=== PATIENT | female | born 1935 | race Caucasian/White ===

== ENCOUNTER 2019-08-29 17:11 | Observation (INO) | payer MEDICARE, SELFPAY ==
[2019-08-29] VITALS (18 sets, daily range): BP systolic 112–153; BP diastolic 60–78; PULSE 60–86; RESP 12–18; TEMP -13.3–36.7; O2SAT 85–97; BMI 22.4
--- NOTE | 2019-08-29 08:00 | PCM.HP.BLA ---
History and Physical Date of Admission: 08/29/19 Katiana Blum 1935 ? ? REFERRING PHYSICIAN: Darryl Salazar, DO ? CHIEF COMPLAINT: Consult ? HPI: The patient is a 84 year old female presents with episodes of right upper quadrant abdominal pain. She has also noted occasional nausea and decreased appetite. Also few episodes of emesis. Denies fevers. States that the pain is occasional sharp, does not radiate. She is presently on a PPI, but denies heartburn. Denies constipation or diarrhea ? US 08/10/2019 IMPRESSION: Undistended gallbladder containing sludge and a large nonmobile stone near the neck. ?There is no wall thickening, wall edema or pericholecystic fluid. ?There is no sonographic Luther sign per technologist note. Bosniak 2F Indeterminant complex cystic lesion upper pole right kidney. ? Suggest either dedicated [address] with and without contrast or close 6 month sonographic follow-up. Coarsened hepatic echotexture and inhomogeneous echogenicity with some subtle lobulated contour which could indicate mild cirrhotic morphology and fatty infiltration. ? ? PAST MEDICAL HISTORY ? COPD (chronic obstructive pulmonary disease) with chronic bronchitis (HCC) ? ? Hypertension ? ? Lower extremity edema ? ? on diuretic ? Osteoporosis ? ? on Fosamax in past ? Vertigo ? ? PAST SURGICAL HISTORY ? HEART CATHETERIZATION ? 1998 ? PAST SURGICAL HISTORY OF ? ? ? left eye surgery ? PAST SURGICAL HISTORY OF ? ? ? left ankle surgery after fx ? PAST SURGICAL HISTORY OF ? ? ? arthroscopic left thumb ? ? Current Outpatient Medications ? diclofenac sodium (VOLTAREN) 1 % topical gel Apply 2 g to affected area four times daily as needed (ankle joint pain). Fill as generic, do not fill under brand name Voltaren ? lansoprazole (PREVACID) 30 mg capsule Take 1 capsule by mouth daily before breakfast. ? albuterol HFA (PROAIR HFA) 90 mcg/actuation inhaler Inhale 2 Puffs as instructed every 4 hours as needed. GENERIC okay ? sertraline (ZOLOFT) 25 mg tablet TAKE 1 TABLET EVERY DAY AT BEDTIME ? tiotropium (SPIRIVA WITH HANDIHALER) 18 mcg inhalation capsule INHALE THE CONTENTS OF 1 CAPSULE INSTRUCTED ONCE DAILY. ? triamterene-hydrochlorothiazide (MAXZIDE-25) 37.5-25 mg per tablet TAKE 1 TABLET ONE TIME DAILY ? meloxicam (MOBIC) 7.5 mg tablet Take 1 tablet by mouth once daily. ? metoprolol succinate ER (TOPROL XL) 25 mg 24 hr tablet Take 1 tablet by mouth once daily. ? albuterol HFA (PROVENTIL HFA, VENTOLIN HFA) 90 mcg/actuation inhaler Inhale 2 Puffs as instructed every 6 hours as needed for Wheezing/Shortness of Breath. ? Cane shayy 1 Device once daily. Quad cane to be used daily for Dx: Right ankle sprain ? Aspirin, Buffered 81 mg tab Take by mouth. ? calcium carbonate 600 mg-cholecalciferol 400 units (CALCIUM WITH VITAMIN D) 600 mg(1,500mg) -400 unit tab Take 1 tablet by mouth once daily. ? acetaminophen 650 mg CR tablet Take 650 mg by mouth every 8 hours as needed. ? ? ALLERGIES: Flovent [Fluticasone Propionate] ? PERSONAL HISTORY: Social History ? Tobacco Use ? Smoking status: Former Smoker ? ? Packs/day: 1.00 ? ? Years: 50.00 ? ? Pack years: 50.00 ? ? Types: Cigarettes ? ? Last attempt to quit: 02/18/1996 ? ? Years since quittin.5 ? Smokeless tobacco: Never Used Substance Use Topics ? Alcohol use: No ? Drug use: No ? FAMILY HISTORY ? Heart Mother ? ? Heart Father ? ? Breast Cancer Daughter ? ? Cancer Sister ? ? Lung ? Heart Maternal Grandmother ? ? Hypertension Brother ? ? Hypertension Brother ? ? Hypertension Sister ? ? ? Nursing Notes: Lee Ann Wilkinson LPN 08/18/2019 2:21 PM Signed REVIEW OF SYSTEMS: General: The patient NOTES fatigue, denies weight loss, denies weight gain, denies feeling hot, and denies feelings of cold. Eyes: The patient denies glaucoma, denies eye injury/surgery, wears glasses or contacts. Ear/Nose/Throat: The patient denies allergies, denies hayfever, denies ear infections, and denies bloody noses. Cardiovascular: EKG in office was OK, denies chest pain, denies heart disease, denies high blood pressure,denies cardiac stent, denies prior heart attack, denies irregular heart beat, denies high cholesterol, denies poor circulation, denies heart failure, other cardiac issues, denies claudication, denies cold feet, denies peripheral arterial stent. Respiratory: has SOB with exertion, had recent PFTs, denies tuberculosis, denies pneumonia, denies frequent cough, denies pulmonary embolism, denies coughing up blood. Gastrointestinal: denies previous colonoscopy but recent IFOBT was negative, denies constipation of diarrhea, denies difficulty swallowing, NOTES acid reflux, denies ulcers, NOTES vomiting, denies jaundice/hepatitis, notes gallbladder problems, denies black or tarry stools, denies hemorrhoids, denies bleeding from rectum, denies diverticulitis, denies loss of stool control, and denies hernias. Kidney/Bladder: The patient denies kidney stones, denies urine infections, and denies bloody urine. Skin: The patient denies a history of skin cancer, denies bleeding/changing moles, and denies a history of skin rash. Neurologic: The patient denies a history of epilepsy/convulsions, denies headaches, denies head/spinal injuries, and denies stroke/TIA. Psychiatric: The patient denies psychiatric medications, NOTES depression, and denies voices, denies substance abuse. Endocrine: The patient denies thyroid disorders, denies diabetes, and denies hormonal problems. Hematologic: The patient notesa history of bruising, denies bleeding, and denies anemia, DENIES blood clots. Infections: The patient NOTES a history of measles and mumps, NOTES rheumatic fever, and denies sexually transmitted diseases. Musculoskeletal: The patient denies back pain/injury, denies back problems, denies sciatica, NOTES knee/foot trouble, NOTES arthritis, or denies gout. ? ? PHYSICAL EXAMINATION: General: The patient is 84 year old female, well nourished, well hydrated in no acute distress. The patient is oriented to time, place, and person. VITALS: Blood pressure 140/78, pulse 68, temperature 36.4 ?C (97.5 ?F), temperature source Temporal Artery, height 157.5 cm (5' 2), weight 59.9 kg (132 lb), SpO2 97 %. Body mass index is 24.14 kg/m?. Head ? Normocephalic. EOM intact with sclera clear and no icterus noted. Mouth with mucus membranes moist. Neck - supple with no jugular venous distention noted. Trachea is midline. Lungs ? clear to auscultation. Normal breath sounds. No rales/rhonchi/wheezing noted. No labored breathing noted, such as retractions. No cough heard. Heart ? normal S1 and S2 auscultated. No rubs/clicks/murmurs noted. Regular rate. Abdomen ? soft and benign. Normal bowel sounds. No abdominal bruits noted. Extremities ? no calf tenderness noted. No pitting edema noted. Skin ? normal skin integrity. Neurological ? gait normal, no focal deficits noted. Psych ? calm and appropriate RADIOLOGIC STUDIES: As Noted ? ? IMPRESSION: cholelithiasis by US, right upper quadrant abdominal pain ? PLAN: I have discussed the above with the patient and her son who is present with her. I have offered laparoscopic cholecystectomy, possible cholangiograms. I have explained the procedure to the patient. I have counseled the patient as to the risks of the procedure, including but not limited to: infection, bleeding, injury to any blood vessels/nerves, scar tissue, injury to any intrabdominal organs, injury to bowel/bladder, injury to the common bile duct/biliary tree, bile leakage, intraabdominal abscess/bleeding, hernias at incisional sites, wound infections, complications of anesthesia, etc. ? the patient understands. The patient wishes to proceed. I have answered all questions to the patient?s satisfaction and the patient has no further questions. . Diagnoses: (R11.0) Nausea (K80.70) Calculus of gallbladder and bile duct without cholecystitis or obstruction (K76.9) Liver disorder Return to Clinic: The patient is instructed to follow-up with me after the procedure. ? Melanie Rice MD
[2019-08-29 12:08] LABS: Prothrombin Time (Protime)PT. 12.8 SECONDS (11.7-14.9)
[2019-08-29] MEDS: Lactated Ringers 1,000 ML 75 ML IV (12:08)
[2019-08-29 12:09] LABS: Partial Thromboplast Time 23.6 Seconds (24.1-36.2)
[2019-08-29 12:15] LABS: AST(SGOT) 22 U/L (15-37); Alanine Aminotransfer ALT/SGPT 19 U/L (13-56); Albumin, Serum 3.9 g/dL (3.2-5.0); Alkaline Phosphatase 79 U/L (45-117); Anion Gap 7 (5-15); BUN 34 mg/dL (7-18); Bilirubin, Direct 0.09 mg/dL (0.00-0.30); Calcium,Total 9.6 mg/dL (8.5-10.1); Chloride 107 mmol/L (98-107); Creatinine, Serum 1.48 mg/dL (0.55-1.02); EST Glomerular Filtration Rate 36 mL/min (>60); Est Glom Filt Rate - Afr Amer 43 mL/min (>60); Glucose 98 mg/dL (74-106); Potassium 4.1 mmol/L (3.5-5.1); Protein, Total 7.9 g/dL (6.4-8.2); Sodium Level 143 mmol/L (136-145)
[2019-08-29 12:20] LABS: Hematocrit 36.2 % (37-47); Hemoglobin 11.4 g/dL (12.0-15.0); Mean Corp Hgb Conc 31.5 g/dL (32-36); Mean Corpuscular Hgb 30.2 pg (27.0-32.0); Mean Corpuscular Volume 95.8 fL (81-99); Mean Platelet Vol. 11.6 fl (6.2-12.0); Platelet Count 180 K/mm3 (150-450); RBC Distribution Width CV 13.2 % (11.6-14.6); RBC Distribution Width SD 46.5 fl (35.1-43.9); Red Blood Count 3.78 M/mm3 (4.2-5.4)
--- NOTE | 2019-08-29 13:05 | GALL_PTH ---
PATIENT: MELCHOR HENDRICKS LOC: [facility]3 U#:[id number] AGE/SX: 84/F ROOM: MS311 RE08/29/[address]: Dr. Trent Winston MD : 1935 BED: 1 DIS: 08/31/2019 SPEC #: [id number] RECD: 08/29/19 15:33 STATUS: TRUDY MIKI #: [id number] KAYKAY: 08/29/19 13:[address]: Melanie Rice DEPT: SURGICAL PATHOLOGY RECD BY: Petar Winters ENTERED: 08/30/19 09:26 SP TYPE: SERG RODRIGUEZ DR: Dr. Darryl Salazar DO Tissues: A - Gallbladder, NOS B - Lymph node, NOS Procedures: Surgery Specimen Level III Surgery Specimen Level IV HEADER OPERATION: Laparoscopic cholecystectomy with IOC PRE-OP DIAGNOSIS: Calculus of gallbladder and bile duct TISSUE SUBMITTED: A - Gallbladder, B - Lymph node MICROSCOPIC DIAGNOSIS A. Gallbladder, cholecystectomy: Chronic cholecystitis and cholelithiasis. Gallbladder wall with hyalinization, calcific change and embedded fragments of calculi. B. Lymph node, biopsy: Fibrocollagenous tissue. See comment. AM:andrade 09/02/19 COMMENT B. Lymph node is not identified. Clinical correlation is suggested. Case has been reviewed in consultation with Dr. West who concurs with the above diagnosis. IDC:DORIAN MICROSCOPIC DESCRIPTION Slides are reviewed. GROSS DESCRIPTION A - Received is one container labeled with the patient's name and designated gallbladder. The specimen consists of a gallbladder measuring 6.5 cm in length and 2.5 cm in diameter. The external surface is pink-holland, smooth and glistening for the most part. Focally it is granular, hemorrhagic and contains cautery artifact. The gallbladder contains greenish-brown bile and one ovoid brownish-black stone measuring 2.5 x 1.5 x 1.5 cm. The fundus of the gallbladder shows a holland-white nodule measuring 1 x 1 x 1 cm. The nodule shows a focal area of calcification. The mucosa is bile-stained and without any mass lesions. The gallbladder wall measures up to 0.1 to 0.2 cm in thickness. Ethanol Operator sections are submitted in two cassettes as follows: 1 - mucosa section, 2 - entire nodular area of the fundus submitted after decalcification. B - Received in fixative is one container labeled with the patient's name and designated lymph node. The specimen consists of a fragment of holland soft tissue measuring 0.3 x 0.2 x 0.1 cm. The entire specimen is submitted in one cassette. / SJ:rg 08/30/19 TC:3 CPT: 91477, 27362
--- NOTE | 2019-08-29 13:42 | PCM.DC.GB ---
Discharge Diet: No Restrictions - avoid carbonated beverages for a couple of days drink plenty of fluids Discharge Activity: Return to Normal Activity, May not drive while taking narcotic pain medications. Lifting Restrictions: no lifting greater than 10 pounds for two weeks Call your doctor if your incision/area has: Continuous Slow Oozing, Foul Smelling Discharge Call your doctor if you observe: Fever of 101 or Higher Additional Dressing/Incision Instructions:: Leave dressings in place. May get wet in shower. Do not soak - no tub baths/swimming Allergies/Adverse Reactions: Allergies No Known Allergies Allergy (Verified 08/29/19 11:57) Medications to take at Discharge Albuterol Sulfate [Albuterol Sulfate Hfa] 1 puff IH PRN PRN 08/23/19 Aspirin [Aspir 81] 81 mg PO DAILY 08/23/19 Ca/D3/Mag Ox/Zinc/Medical Radiation Therapist/Sameer/Bor [Calcium 165-[id number]-[id number] Chw Tb] 1 ea PO DAILY 08/23/19 Diclofenac/Hyaluronate/Niacin [Diclofen 3%-Hyaluron 2%-Niac4%] 30 gm TP DAILY 08/23/19 Lansoprazole 30 mg PO DAILY 08/23/19 Meloxicam [Mobic] 7.5 mg PO DAILY 08/23/19 Metoprolol Tartrate [Lopressor (Beta Sabino)] 25 mg PO DAILY 08/23/19 Sertraline HCl [Zoloft] 25 mg PO QHS 08/23/19 Tiotropium [place] [Spiriva 18 MCG] 2 puff INHALATION DAILY 08/23/19 Triamterene/Hydrochlorothiazid [Triamterene-Hctz 37.5-25 mg Tb] 1 ea PO DAILY 08/23/19 Hydrocodone/Acetaminophen [[place] 5-325 Tablet] 1 each PO Q8H PRN PRN 5 Days #15 tablet 08/29/19 The following prescriptions were given: Hydrocodone/Acetaminophen [[place] 5-325 Tablet] 1 each PO Q8H PRN PRN 5 Days #15 tablet PRN Reason: Pain Score 4-10/10 Transmission Status: Received by QUINTIN GAINES[address] Primary Care Physician: Darryl Salazar DO [Primary Care Provider] - Test Results: Test results from this visit will be discussed in further detail at your follow-up appointment, if applicable. Please Follow Up With: Melanie Rice MD - call When: to be seen in a 7-10 days, please call for date and time, thank you
--- NOTE | 2019-08-29 14:10 | RAD_ITS ---
CLINICAL HISTORY: Female, 84 years old. Abdominal pain PROCEDURE: CHOLANGIOGRAM - Intra-Op FLUOROSCOPY TIME (if supplied): (0:05) minutes/seconds TECHNIQUE: (All elements of maximal sterile barrier technique followed, including US elements as applicable) 0:05 minutes of fluoroscopy of the abdomen was utilized and operating room during intraoperative plantar and and a single image is made of for interpretation. FINDINGS: Examination of the common bile duct demonstrates no evidence of filling defect to suggest common bile duct stone. There is spillage of contrast through the ampulla into the duodenum. RAD/Cholangiogram/ O R,Initial IMPRESSION: No common bile duct stone. Electronically Signed: Dorian Thorne MD at 8:02 EST Tel , Service support ,
--- NOTE | 2019-08-29 14:54 | PCM.OPRPT ---
Report of Operation Date of Procedure: 08/29/19 Pre-Operative Diagnosis: cholelithiasis Post-Operative Diagnosis: same, chronic cholecystitis Surgery/Procedure Performed:: laparoscopic cholecystectomy with cholangiogram Description of Surgical Findings:: no flow seen in the duodenum, chronic cholecystitis, large gallstones in gallbladder railroad hand: Edna Ornelas Type of Anesthesia:: General Anesthesiologist: Shantel Goldstein Specimen's removed: gallbladder and contents, fragment of lymph node Estimated Blood Loss (mL): 25 ml Fluids Replaced: 1000 ml RL Description of Procedure: After informed consent was given, the patient was brought to the Operating Room. Appropriate time out protocol was followed. She was then placed in the supine position. The patient was then placed under general endotracheal anesthesia. The abdomen was then prepped with a sterile surgical skin preparation and sterile surgical drapes were placed. The infraumbilical skin fold was grasped with penetrating clamps and the skin and subcutaneous tissues were infiltrated with 0.25% marcaine with epinephrine. A transverse skin incision was then made with a 15 blade scalpel. The anterior abdominal wall was elevated and a Veress needle was carefully inserted into the intraabdominal cavity. It was checked to be in the proper position with a normal saline drop test. A CO2 pneumoperitoneum was then created. Once this was achieved, then the Veress needle was removed and an 11mm trocar was placed in its stead. A 10mm laparoscope was then inserted into the trocar and careful attention was directed to the intraabdominal contents. There was no evidence of injury to any intraabdominal organs from insertion of the Veress needle or the trocar. Under direct visualization, a 5mm subxiphoid trocar and two lateral 5mm right subcostal trocars were placed. The skin and subcutaneous tissues at these sites were infiltrated with 0.25% marcaine with epinephrine prior to placement of these trocars. Attention was then directed to the right upper quadrant of the abdomen. There were adhesions from the colon and omentum to the anterior surface of the abdominal wall. There were taken down by electrocautery. Graspers were placed in the lateral trocars to grasp the distal aspect of the gallbladder and direct it cephalad and to grasp the gallbladder at Perdue?s pouch and direct it laterally. Dissection then began on the proximal gallbladder continuing down to the area of the triangle of Calot to bluntly dissect out the cystic duct. The critical angle was identified and delineated. The neck of the gallbladder was identified and blunt dissection continued to dissect out a segment of the cystic duct. A clip was then placed on the neck of the gallbladder. A small ductotomy was then made. A Ranfac catheter was brought in through a separate skin incision and placed into the cystic duct. An intraoperative cholangiogram was performed under fluoroscopy. The xray revealed arborization of the biliary tree and a faint outline of the common bile duct, but no flow into the duodenum. The patient was given an ampule of glucagon and a repeat cholangiogram still showed no flow into the duodenum. The Ranfac catheter was then removed and two clips were placed proximal to the ductotomy and the cystic duct was then transected. The cystic artery was visualized and bluntly isolated and then two clips were placed proximally and one clip distally and then it was transected between the proximal and distal clips. The gallbladder was then from the liver bed using electrocautery. It was then placed in an Endobag and thus able to be brought out of the umbilical port. It was then forwarded to pathology for analysis. The liver bed was carefully examined. There was no evidence of bile leakage or bleeding. The cystic duct stump and cystic artery stump had their clips intact and there was no evidence of bile leakage or bleeding. The remainder of the abdomen was grossly normal. The CO2 was released and all trocars removed intact. The periumbilical fascia was approximated with a [id number] 0 vicryl suture. All skin incision were closed with 4-0 monocryl in a subdermal fashion. Cavilol and Steristrips were used to reinforce the skin closure. Sterile dressings were applied to all wounds. The patient was extubated and brought to the Recovery Room in stable condition. - Complications none noted - Admit VTE Documentation VTE Present on Admission: Yes VTE Mechan Device Prophylaxis: SCD's
[2019-08-29] MEDS: 0.9% Normal Saline 1,000 ML 75 ML IV (14:55)
[2019-08-29] MEDS: Bupiv/Epi 0.25% 30 ML Vial (14:58)
[2019-08-29] MEDS: Ipratropium/Albuterol Sulfate 3 ML AMPUL.NEB INHALATION (15:48)
[2019-08-29] MEDS: Sertraline 50 MG Tablet 25 MG PO (20:57)
[2019-08-30] VITALS (10 sets, daily range): BP systolic 114–134; BP diastolic 63–72; PULSE 67–86; RESP 14–18; TEMP 36.4–37.3; O2SAT 80–95
[2019-08-30] MEDS: 0.9% Normal Saline 1,000 ML 75 ML IV (00:59)
[2019-08-30 06:15] LABS: AST(SGOT) 46 U/L (15-37); Alanine Aminotransfer ALT/SGPT 34 U/L (13-56); Albumin, Serum 3.1 g/dL (3.2-5.0); Alkaline Phosphatase 79 U/L (45-117); Bilirubin, Direct 0.15 mg/dL (0.00-0.30); Globulin 3.3 g/dL (2.2-4.2); Protein, Total 6.4 g/dL (6.4-8.2)
--- NOTE | 2019-08-30 09:15 | PCM.PN.SRG ---
Subjective: I am following this patient with Dr. Melanie Rice. Patient is POD#1 s/p laparoscopic cholecystectomy, was kept overnight due to hypoxia following surgery. Patient awake and resting comfortably in bed at time of visit. She notes she is feeling much better this morning. She states she has been up sitting in her chair and ambulating to and from bathroom this morning without issue. Denies any shortness of breath. States had some dry mouth last night but that has improved. She tolerated breakfast well and denies nausea or bloating. Passed flatus this morning. - Physical Exam Vitals/I&O's: Vital Signs Temp Pulse Resp BP Pulse Ox 97.5 F L 80 18 124/67 H 92 08/30/19 02:51 08/30/19 07:28 08/30/19 03:01 08/30/19 02:51 08/30/19 08:54 Oxygen Flow Rate (L/min) 2 Oxygen Delivery Method Nasal Cannula Weight: 130 lb 15.273 oz Body Mass Index (BMI) 22.4 Intake and Output for Last 24 Hours 08/28/19 08/29/19 08/30/19 23:59 23:59 23:59 Intake Total 1100 / 1370 1495 / 1495 Output Total 1050 / 1050 Balance 1100 / 870 445 / 445 General: Alert, Oriented x3, Cooperative, No apparent distress HEENT: Atraumatic, PERRLA, Normocephalic Neck: Supple Lungs: Clear to auscultation, Normal air movement Cardiovascular: Regular rate, Regular Rhythm Abdomen: Bowel Sounds Present, Soft, - - dressings c/d/i with mild ecchymosis Extremities: No clubbing, No cyanosis, No edema Skin: No rashes, No breakdown Psych/Mental Status: Normal Affect, Appropriate Laboratory Results 08/29/19 11:45: WBC 8.0, RBC 3.78 L, Hgb 11.4 L, Hct 36.2 L, MCV 95.8, MCH 30.2, MCHC 31.5 L, RDW Std Deviation 46.5 H, RDW Coeff of Vania 13.2, Plt Count 180, MPV 11.6 08/29/19 11:45: PT 12.8, INR 1.0, APTT 23.6 L 08/29/19 11:45: Sodium 143, Potassium 4.1, Chloride 107, Carbon Dioxide 29.0, Anion Gap 7, BUN 34 H, Creatinine 1.48 H, Estim Creat Clear Calc 24.00, Est GFR (MDRD) Af Amer 43 L, Est GFR (MDRD) Non-Af 36 L, BUN/Creatinine Ratio 23.0 H, Glucose 98, Calcium 9.6, Total Bilirubin 0.40, Direct Bilirubin 0.09, AST 22, ALT 19, Alkaline Phosphatase 79, Total Protein 7.9, Albumin 3.9, Globulin 4.0 08/30/19 05:42: Total Bilirubin 0.70, Direct Bilirubin 0.15, AST 46 H, ALT 34, Alkaline Phosphatase 79, Total Protein 6.4, Albumin 3.1 L, Globulin 3.3 Current Medications Hydrocodone Bitart/Acetaminophen ([place] 5mg-325mg) 1 tablet PO Q4H PRN PRN PRN Reason: Pain Score 1-5/10 Sodium Chloride () 1,000 mls @ 75 mls/hr IV .[id number] [facility] Last Infusion: 08/30/19 05:55 Dose: 15 mls/hr Documented by: Sodium Chloride () 250 mls @ 15 mls/hr IV .[id number] PRN PRN Reason: Saline Flush Sodium Chloride () 250 mls @ 15 mls/hr IV .[id number] PRN PRN Reason: Additional IVPB Infusion Metoprolol Tartrate (Lopressor (Beta Sabino)) 25 mg PO DAILY [facility] Morphine Sulfate () 2 mg IV Q1H PRN PRN PRN Reason: Pain Score 6-10/10 Ondansetron HCl (Zofran) 4 mg IV Q8H PRN PRN PRN Reason: NAUSEA/VOMITING Sertraline HCl (Zoloft) 25 mg PO QHS [facility] Last Admin: 08/29/19 20:57 Dose: 25 mg Documented by: Sodium Chloride () 250 ml IV UD PRN PRN Reason: Hypotension Sodium Chloride () 10 - 40 ml IV UD PRN PRN Reason: SALINE FLUSH Triamterene/HCTZ (Dyazide (G)) 1 cap PO DAILY [facility] Medical Necessity - Tobacco Use Smoking Status: Former smoker Tobacco Use: Non-smoker Assessment/Plan I have reviewed my findings with Dr. Rice, who also participated in development of the following plan POD#1 s/p laparoscopic cholecystectomy Admitted overnight for hypoxia Patient currently on 2 L of oxygen via nasal cannula Continue working on incentive spirometer and increase ambulation Trial on room air Check chest xray
--- NOTE | 2019-08-30 09:25 | RAD_ITS ---
STUDY: X-RAY CHEST REASON FOR EXAM: Female, 84 years old. LOW O2. HAD GB REMOVED YESTERDAY. TECHNIQUE: PA and lateral views of the chest. COMPARISON: None. FINDINGS: There is hyperinflation of the lungs consistent with chronic obstructive lung disease (COPD). 1.5 cm nodular opacity projecting over the lower left lung worrisome for a pulmonary nodule and correlation with CT the chest with contrast is recommended. There is no demonstrated pleural abnormality. Normal size heart. Normal mediastinum and yuliana. Normal visualized pulmonary arteries. Normal visualized aortic arch and descending thoracic aorta. Levoscoliosis of the thoracolumbar spine. Normal visualized ribs, clavicles, and shoulders. There is no demonstrated abnormality of the visualized soft tissue structures of the upper abdomen. RAD/Chest PA and Lateral IMPRESSION: Emphysema with a questionable 1.5 cm left lower lobe nodule and correlation with CT the chest with contrast is recommended. Electronically Signed: Dorian Thorne MD at 11:47 EST Tel , Service support ,
[2019-08-30] MEDS: 0.9% Saline Lock 10 ML Syringe IV ×2 (09:41→15:12)
[2019-08-30] MEDS: Triamterene 37.5MG/Hctz 25MG Capsule 1 CAP PO (10:47)
[2019-08-30] MEDS: Metoprolol Tartrate 25 MG Tablet PO (10:48)
--- NOTE | 2019-08-30 13:58 | CT_ITS ---
We are attempting to reach an attending provider to discuss findings. An addendum with communication details will be sent when the communication is complete. STUDY: CT CHEST WITH CONTRAST REASON FOR EXAM: Female, 84 years old. Abnormal CXR, ? left lower lung mass, post op lap byron, SOB, COPD. RADIATION DOSAGE (If Supplied By Facility): CTDIvol = ( 12.02 ) mGy, DLP = ( 286.54 ) mGycm TECHNIQUE: Transaxial imaging was performed following intravenous administration of IV 75mL Isovue-300. Individualized dose optimization techniques were used for this CT. COMPARISON: Chest x-ray 08/30/2019 FINDINGS: Moderate emphysematous changes. Moderate bilateral apical scarring. 1.5 center bilobed noncalcified nodule in the left lower lobe the lungs corresponding to nodules seen on chest x-ray and worrisome for bronchogenic carcinoma. Correlation with PET CT scan is recommended. Follow-up CT the chest is recommended in 6 months document stability. There is no demonstrated pleural abnormality. Normal heart and pericardium. Small hiatal hernia. Normal hilar regions. Normal enhanced pulmonary arteries. Normal aorta arch and descending thoracic aorta. S-shaped scoliosis of the thoracic spine with degenerative disc disease. There is no demonstrated abnormality of the visualized upper abdomen. CT/Chest WITH Contrast IMPRESSION: Moderate emphysema with a 1.5 cm noncalcified left lower lobe nodule as seen on chest x-ray worrisome for bronchogenic carcinoma. Correlation with PET CT scan is recommended. Follow-up CT the chest is recommended in 6 months. Electronically Signed: Dorian Thorne MD at 15:09 EST Tel , Service support ,
[2019-08-30] MEDS: 0.9% Normal Saline 1,000 ML 500 ML IV (15:12)
--- NOTE | 2019-08-30 16:44 | PCM.PN.HOSP ---
Reason for Visit: hypoxia Subjective: This is an 84 yo female with pmhx of COPD with 40 years smoking, now not smoking but still exposed to 2nd hand smoke, gerd, htn, HLD who we have been asked to see for post op hypoxia. The patient underwent a cholecystectomy with Dr. Rice yesterday. She was doing well post op with minimal complaints some pain with ambulation however the patient was unable to be weaned off O2 since surgery. At baseline the patient has poor performance status and is SOB with minimal activity. She is resting comfortably in a chair at bedside. She has no SOB at rest. She has no cough, fevers, or chills. She denies chest pain. She has no LE edema. She has never been hospitalized with a COPD exacerbation. She has no ball winder. Her CT chest showed a lung nodule concerning for cancer and emphysema. Vitals/I&O's: Vital Signs Temp Pulse Resp BP Pulse Ox 99.1 F 70 18 114/63 95 08/30/19 15:01 08/30/19 15:01 08/30/19 15:01 08/30/19 15:01 08/30/19 15:01 Oxygen Flow Rate (L/min) [ 3 AMBULATION with Oxygen] Oxygen Flow Rate (L/min) 3 Oxygen Delivery Method Nasal Cannula Weight: 130 lb 15.273 oz Body Mass Index (BMI) 22.4 Intake and Output for Last 24 Hours 08/28/19 08/29/19 08/30/19 23:59 23:59 23:59 Intake Total 1100 / 1370 1634.5 / 1634.5 Output Total 1950 / 1950 Balance 1100 / 870 -315.5 / -315.5 General: Alert, Oriented x3, Cooperative HEENT: Atraumatic, PERRLA, EOMI, Normocephalic Neck: Supple, No JVD, Negative Carotid Bruits Lungs: Clear to auscultation, Diminished Cardiovascular: Regular rate, No murmurs Abdomen: Bowel Sounds Present, Soft, Non Tender Extremities: No edema, Capillary Refill Less than 3 Seconds Skin: No rashes, No breakdown Musculoskeletal: No Tenderness to Palpation of Joints or Extremities Neurological: Cranial nerves II-XII grossly intact Psych/Mental Status: Normal Affect, Appropriate, Alert and oriented to time, place, person, mood and affect Laboratory Results 08/30/19 05:42: Total Bilirubin 0.70, Direct Bilirubin 0.15, AST 46 H, ALT 34, Alkaline Phosphatase 79, Total Protein 6.4, Albumin 3.1 L, Globulin 3.3 Current Medications Hydrocodone Bitart/Acetaminophen ([place] 5mg-325mg) 1 tablet PO Q4H PRN PRN PRN Reason: Pain Score 1-5/10 Albuterol Sulfate (Ventolin Aerosols) 2.5 mg INHALATION Q2H PRN PRN PRN Reason: SOB &/OR WHEEZING Albuterol/Ipratropium (Duoneb) 3 ml INHALATION Q4HWA.RT ROBBIE Budesonide (Pulmicort Aerosol) 0.5 mg INHALATION BID.RT ROBBIE Sodium Chloride () 1,000 mls @ 75 mls/hr IV .[id number] [facility] Last Infusion: 08/30/19 15:13 Dose: 0 mls/hr Documented by: Sodium Chloride () 250 mls @ 15 mls/hr IV .[id number] PRN PRN Reason: Saline Flush Sodium Chloride () 250 mls @ 15 mls/hr IV .[id number] PRN PRN Reason: Additional IVPB Infusion Sodium Chloride () 1,000 mls @ 500 mls/hr IV .Q2H [facility] Stop: 08/30/19 16:59 Last Admin: 08/30/19 15:12 Dose: 500 mls/hr Documented by: Metoprolol Tartrate (Lopressor (Beta Sabino)) 25 mg PO DAILY [facility] Last Admin: 08/30/19 10:48 Dose: 25 mg Documented by: Morphine Sulfate () 2 mg IV Q1H PRN PRN PRN Reason: Pain Score 6-10/10 Ondansetron HCl (Zofran) 4 mg IV Q8H PRN PRN PRN Reason: NAUSEA/VOMITING Sertraline HCl (Zoloft) 25 mg PO QHS [facility] Last Admin: 08/29/19 20:57 Dose: 25 mg Documented by: Sodium Chloride () 250 ml IV UD PRN PRN Reason: Hypotension Sodium Chloride () 10 - 40 ml IV UD PRN PRN Reason: SALINE FLUSH Last Admin: 08/30/19 15:12 Dose: 10 ml Documented by: Triamterene/HCTZ (Dyazide (G)) 1 cap PO DAILY [facility] Last Admin: 08/30/19 10:47 Dose: 1 cap Documented by: STROKE Vital Signs/Narrative: Vital Signs Temp Pulse Resp BP Pulse Ox 08/30/19 15:01 99.1 F 70 18 114/63 95 Medical Necessity - Tobacco Use Smoking Status: Former smoker Tobacco Use: Non-smoker Assessment/Plan 1. Post op hypoxia - Pt has underlying COPD and emphysema. She is SOB with exertion all the time at home. I suspect she is chronically hypoxic. Will schedule duonebs, push incentive spirometer, start pulmicort, and add prn albuterol. Wean o2 as tolerated. I would not be surprised if she needs o2 at least with exertion at discharge. I dont suspect an acute process, I do not feel that this is an acute exacerbation. Lungs are diminished with no adventitious sounds. 2. Pulmonary nodule - concerning for cancer. Pt has 40 yr smoking hx and still exposed to 2nd hand smoke. She needs close follow up with pulmonology at discharge and serial imaging. 3. s/p lap byron POD#1 - care per Dr. Rice. Minimal pain. tolerating diet. 4. HTN - stable, triamterene/hctz/metoprolol 5. GERD - PPI 6. Suspect CKDIII - no baseline. recheck BMP in AM. Thank you for the opportunity to participate in the care of this patient This patient was seen by Jero Fowler PA-C under the supervision of Dr. Leong
[2019-08-30] MEDS: Ipratropium/Albuterol Sulfate 3 ML AMPUL.NEB INHALATION (18:33)
[2019-08-30] MEDS: Budesonide Respules 0.5 MG/2 ML AMPUL.NEB. INHALATION (18:33)
[2019-08-30] MEDS: Sertraline 50 MG Tablet 25 MG PO (20:43)
[2019-08-31] VITALS (9 sets, daily range): BP systolic 120–135; BP diastolic 73–83; PULSE 70–92; RESP 16–21; TEMP 37.1–37.8; O2SAT 84–95
[2019-08-31 06:59] LABS: Anion Gap 6 (5-15); BUN 21 mg/dL (7-18); BUN/Creat Ratio 18.8 RATIO (10-20); Calcium,Total 8.8 mg/dL (8.5-10.1); Chloride 109 mmol/L (98-107); Creatinine, Serum 1.12 mg/dL (0.55-1.02); EST Glomerular Filtration Rate 49 mL/min (>60); Est Glom Filt Rate - Afr Amer 59 mL/min (>60); Estimated Creatinine Clearance 31.71 ml/min; Glucose 103 mg/dL (74-106); Potassium 3.7 mmol/L (3.5-5.1); Sodium Level 143 mmol/L (136-145)
[2019-08-31] MEDS: Budesonide Respules 0.5 MG/2 ML AMPUL.NEB. INHALATION (07:33)
[2019-08-31] MEDS: Ipratropium/Albuterol Sulfate 3 ML AMPUL.NEB INHALATION ×2 (07:33→10:28)
--- NOTE | 2019-08-31 09:07 | PN_ITS ---
Reason for Visit: Postoperative hypoxia Subjective: Patient is an 84-year-old lady admitted with chronic cholecystitis underwent laparoscopic cholecystectomy with cholangiogram. Postoperative period Complicated by hypoxia for which the hospitalist service was consulted Objective: GENERAL: cooperative HEENT: Atraumatic; EYES; Anicteric, Normal Conjunctiva NECK; supple, normal thyroid, RESPIRATORY: Diminished to auscultation CARDIOVASCULAR: Regular S1 S2, GI: soft, normoactive bowel sounds, : No Renal angle tenderness; EXTREMITIES: No edema, no clubbing, MUSCULOSKELETAL: no muscle waisting NEURO: Awake; no lateralizing signs. SKIN: No Rash PSYCH; Flat affect Vitals/I&O's: Vital Signs Temp Pulse Resp BP Pulse Ox 98.8 F 83 16 125/73 H 93 08/31/19 08:00 08/31/19 08:00 08/31/19 08:00 08/31/19 08:00 08/31/19 08:10 Oxygen Flow Rate (L/min) [ 3 AMBULATION with Oxygen] Oxygen Flow Rate (L/min) 2 Oxygen Delivery Method Nasal Cannula Weight: 59.4 kg Body Mass Index (BMI) 22.4 Intake and Output for Last 24 Hours 08/29/19 08/30/19 08/31/19 23:59 23:59 23:59 Intake Total 1100 / 1370 3125.0 / 3125.0 Output Total 1950 / 1950 1900 / 1900 Balance 1100 / 870 1175.0 / 1175.0 -1900 / -1900 Laboratory Results 08/31/19 05:52: Sodium 143, Potassium 3.7, Chloride 109 H, Carbon Dioxide 28.0, Anion Gap 6, BUN 21 H, Creatinine 1.12 H, Estim Creat Clear Calc 31.71, Est GFR (MDRD) Af Amer 59 L, Est GFR (MDRD) Non-Af 49 L, BUN/Creatinine Ratio 18.8, Glucose 103, Calcium 8.8 Current Medications Hydrocodone Bitart/Acetaminophen ([place] 5mg-325mg) 1 tablet PO Q4H PRN PRN PRN Reason: Pain Score 1-5/10 Albuterol Sulfate (Ventolin Aerosols) 2.5 mg INHALATION Q2H PRN PRN PRN Reason: SOB &/OR WHEEZING Albuterol/Ipratropium (Duoneb) 3 ml INHALATION Q4HWA.RT ROBBIE Last Admin: 08/31/19 07:33 Dose: 3 ml Documented by: Budesonide (Pulmicort Aerosol) 0.5 mg INHALATION BID.RT [facility] Last Admin: 08/31/19 07:33 Dose: 0.5 mg Documented by: Sodium Chloride () 250 mls @ 15 mls/hr IV .[id number] PRN PRN Reason: Saline Flush Sodium Chloride () 250 mls @ 15 mls/hr IV .[id number] PRN PRN Reason: Additional IVPB Infusion Metoprolol Tartrate (Lopressor (Beta Sabino)) 25 mg PO DAILY [facility] Last Admin: 08/30/19 10:48 Dose: 25 mg Documented by: Morphine Sulfate () 2 mg IV Q1H PRN PRN PRN Reason: Pain Score 6-10/10 Ondansetron HCl (Zofran) 4 mg IV Q8H PRN PRN PRN Reason: NAUSEA/VOMITING Pantoprazole Sodium (Protonix) 40 mg PO DAILY [facility] Sertraline HCl (Zoloft) 25 mg PO QHS [facility] Last Admin: 08/30/19 20:43 Dose: 25 mg Documented by: Sodium Chloride () 250 ml IV UD PRN PRN Reason: Hypotension Sodium Chloride () 10 - 40 ml IV UD PRN PRN Reason: SALINE FLUSH Last Admin: 08/30/19 15:12 Dose: 10 ml Documented by: Triamterene/HCTZ (Dyazide (G)) 1 cap PO DAILY [facility] Last Admin: 08/30/19 10:47 Dose: 1 cap Documented by: STROKE Vital Signs/Narrative: Vital Signs Temp Pulse Resp BP Pulse Ox 08/31/19 08:10 93 08/31/19 08:00 98.8 F 83 16 125/73 H 92 08/31/19 07:20 70 20 H Medical Necessity - Tobacco Use Smoking Status: Former smoker Tobacco Use: Non-smoker Assessment/Plan Patient is an 84-year-old lady admitted with chronic cholecystitis underwent laparoscopic cholecystectomy with cholangiogram. Postoperative period Complicated by hypoxia for which the hospitalist service was consulted 1. Postop hypoxia Attributed to patient underlying chronic lung disease COPD (emphysema) did encourage the use of incentive spirometry as well as supplemental oxygen and bronchodilator treatment 2. Status post laparoscopic cholecystectomy 08/29/2019 ?On account of chronic cholecystectomy with large gallstones 3. Pulmonary nodule CT of the chest obtained demonstrated 1.5 cm noncalcified left lower lobe nodule concerning for bronchogenic carcinoma . Patient informed of the results consult placed to pulmonary medicine 4. Hypertension ?patient blood pressure stable did continue with home meds 5. Acute renal insufficiency ?Kidney function did improve with rehydration 6. GERD ?On PPI 7. DVT prophylaxis ?Lovenox Code Visit Inpatient E&M: 90007 Subs Hosp L2
[2019-08-31] MEDS: Triamterene 37.5MG/Hctz 25MG Capsule 1 CAP PO (09:13)
[2019-08-31] MEDS: Pantoprazole Sodium 40 MG Tablet PO (09:13)
[2019-08-31] MEDS: Metoprolol Tartrate 25 MG Tablet PO (09:15)
--- NOTE | 2019-08-31 09:40 | PCM.CONS.PUL ---
Reason for Consult Date of Consultation: 08/31/19 Reason for Consultation: Lung mass History of Present Illness: The patient is an 84-year-old female, with a history as outlined below, who initially presented to the hospital in August 29 to undergo a laparoscopic cholecystectomy. The patient was taken to the OR and underwent laparoscopic Ijeoma with cholangiogram. General anesthesia was employed. The patient was extubated post procedure. However, she did develop postoperative hypoxemia. The patient has a self-reported history of COPD of unknown severity. 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 Prior to this hospitalization, the patient did not utilize supplemental oxygen at her baseline. She does report having had some form of a breathing test done at the [facility] previously. However, she does not recall with the results indicated. She is currently prescribed Spiriva and as needed albuterol in her home environment. On average, she is utilizing her rescue inhaler 2 times per day. The patient does have an approximate [id number] smoking history, having quit completely 20 years ago. As part of the work-up for the patient's postoperative hypoxemia, a CT chest with contrast was obtained which did reveal bilateral emphysematous changes along with a 1.5 cm nodule in the left lower lobe. I was asked to evaluate the patient regarding the aforementioned prior to her discharge home later today. Past Medical History Allergies No Known Allergies Allergy (Verified 08/29/19 11:57) Home Medications: Ambulatory Orders Medication Instructions Recorded Albuterol Sulfate [Albuterol 1 puff IH PRN PRN 08/23/19 Sulfate Hfa] Aspirin [Aspir 81] 81 mg PO DAILY 08/23/19 Ca/D3/Mag Ox/Zinc/[facility]/Sameer/Bor 1 ea PO DAILY 08/23/19 [Calcium [id number] Chw Tb] Diclofenac/Hyaluronate/Niacin 30 gm TP DAILY 08/23/19 [Diclofen 3%-Hyaluron 2%-Niac4%] Lansoprazole 30 mg PO DAILY 08/23/19 Meloxicam [Mobic] 7.5 mg PO DAILY 08/23/19 Metoprolol Tartrate [Lopressor 25 mg PO DAILY 08/23/19 (Beta Sabino)] Sertraline HCl [Zoloft] 25 mg PO QHS 08/23/19 Tiotropium [place] [Spiriva 18 MCG] 2 puff INHALATION DAILY 08/23/19 Triamterene/Hydrochlorothiazid 1 ea PO DAILY 08/23/19 [Triamterene-Hctz 37.5-25 mg Tb] Hydrocodone/Acetaminophen [Cut Off 1 ea PO Q8H PRN PRN 5 Days #15 tab 08/29/19 5-325 Tablet] Smoking Status: Former smoker Tobacco Use: Non-smoker Review of Systems Constitutional: Denies: Chills, Fever Eyes: Denies: Blurred vision, Double vision HEENT: Denies: Head Aches, Sinus Congestion, Sinus Drainage Cardiovascular: Denies: Chest Pain, Palpitations Respiratory: Reports: Shortness of Breath Gastrointestinal: Denies: Abdominal Pain, Nausea, Vomiting Genitourinary: Denies: Dysuria Musculoskeletal: Denies: Joint Pain, Joint Tenderness Skin: Denies: Rash, Wounds Neurological: Denies: Numbness, Tingling, Focal weakness Psychiatric: Denies: Anxiety, Depression, Homicidal Ideations, Suicidal Ideations Hematologic/ Lymphatic: Denies: Easy Bruising, Easy Bleeding Objective: The patient's most recent lab work, culture data and imaging studies have all been personally reviewed. - Physical Exam Vitals/I&O's: Vital Signs Temp Pulse Resp BP Pulse Ox 98.8 F 92 16 125/73 H 93 08/31/19 08:00 08/31/19 09:15 08/31/19 08:00 08/31/19 08:00 08/31/19 08:10 Oxygen Flow Rate (L/min) [ 3 AMBULATION with Oxygen] Oxygen Flow Rate (L/min) 2 Oxygen Delivery Method Nasal Cannula Weight: 130 lb 15.273 oz Body Mass Index (BMI) 22.4 Intake and Output for Last 24 Hours 08/29/19 08/30/19 08/31/19 23:59 23:59 23:59 Intake Total 1100 / 1370 3125.0 / 3125.0 Output Total 1950 / 1950 190 / 1899 Balance 1100 / 870 1175.0 / 1175.0 -190 / -1900 General: Alert, Oriented x3, Cooperative, No apparent distress, - - Family is present at the bedside HEENT: Atraumatic, PERRLA, Normocephalic Oral: No Gingival or Mucosal Lesions/ Ulcerations Neck: Supple, No Nodes, Trachea Midline Lungs: No rhonchi, No wheeze, No rales, Diminished Cardiovascular: Regular rate, Regular Rhythm, Normal S1, Normal S2 Abdomen: Bowel Sounds Present, Soft, Non Tender Extremities: No clubbing, No cyanosis, No edema Skin: No breakdown Musculoskeletal: No Tenderness to Palpation of Joints or Extremities Lymphatic: No Cervical, Supraclavicular, or Inguinal Adenopathy Neurological: Neuro grossly intact Psych/Mental Status: Alert and oriented to time, place, person, mood and affect Labs (Last 48 Hours) 08/29/19 08/29/19 08/29/19 11:45 11:45 11:45 WBC 8.0 RBC 3.78 L Hgb 11.4 L Hct 36.2 L MCV 95.8 MCH 30.2 MCHC 31.5 L RDW Std Deviation 46.5 H RDW Coeff of Vania 13.2 Plt Count 180 MPV 11.6 PT 12.8 INR 1.0 APTT 23.6 L Sodium 143 Potassium 4.1 Chloride 107 Carbon Dioxide 29.0 Anion Gap 7 BUN 34 H Creatinine 1.48 H Estim Creat Clear Calc 24.00 Est GFR (MDRD) Af Amer 43 L Est GFR (MDRD) Non-Af 36 L BUN/Creatinine Ratio 23.0 H Glucose 98 Calcium 9.6 Total Bilirubin 0.40 Direct Bilirubin 0.09 AST 22 ALT 19 Alkaline Phosphatase 79 Total Protein 7.9 Albumin 3.9 Globulin 4.0 08/30/19 08/31/19 05:42 05:52 WBC RBC Hgb Hct MCV MCH MCHC RDW Std Deviation RDW Coeff of Vania Plt Count MPV PT INR APTT Sodium 143 Potassium 3.7 Chloride 109 H Carbon Dioxide 28.0 Anion Gap 6 BUN 21 H Creatinine 1.12 H Estim Creat Clear Calc 31.71 Est GFR (MDRD) Af Amer 59 L Est GFR (MDRD) Non-Af 49 L BUN/Creatinine Ratio 18.8 Glucose 103 Calcium 8.8 Total Bilirubin 0.70 Direct Bilirubin 0.15 AST 46 H ALT 34 Alkaline Phosphatase 79 Total Protein 6.4 Albumin 3.1 L Globulin 3.3 Clinical Impression(s) from Imaging Studies Cholangiogram 08/29/19 14:10 IMPRESSION: No common bile duct stone. Electronically Signed: Dorian Thorne MD at 8:02 EST Tel , Service support , Chest X-Ray 08/30/19 09:25 IMPRESSION: Emphysema with a questionable 1.5 cm left lower lobe nodule and correlation with CT the chest with contrast is recommended. Electronically Signed: Dorian Thorne MD at 11:47 EST Tel , Service support , Chest CT 08/30/19 13:58 IMPRESSION: Moderate emphysema with a 1.5 cm noncalcified left lower lobe nodule as seen on chest x-ray worrisome for bronchogenic carcinoma. Correlation with PET CT scan is recommended. Follow-up CT the chest is recommended in 6 months. Electronically Signed: Dorian Thorne MD at 15:09 EST Tel , Service support , ADDENDUM: 08/30/19 1533 IMPRESSION: Moderate emphysema with a 1.5 cm noncalcified left lower lobe nodule as seen on chest x-ray worrisome for bronchogenic carcinoma. Correlation with PET CT scan is recommended. Follow-up CT the chest is recommended in 6 months. N.B. : The above information has been verbally conveyed by Dorian Thorne MD to Dr. Simin Chappell MD, on 08/30/2019 15:26:34 (ET). Electronically Signed: Dorian Thorne MD at 15:09 EST Tel , Service support , Current Medications Hydrocodone Bitart/Acetaminophen ([place] 5mg-325mg) 1 tablet PO Q4H PRN PRN PRN Reason: Pain Score 1-5/10 Albuterol Sulfate (Ventolin Aerosols) 2.5 mg INHALATION Q2H PRN PRN PRN Reason: SOB &/OR WHEEZING Albuterol/Ipratropium (Duoneb) 3 ml INHALATION Q4HWA.RT ROBBIE Last Admin: 08/31/19 07:33 Dose: 3 ml Documented by: Budesonide (Pulmicort Aerosol) 0.5 mg INHALATION BID.RT [facility] Last Admin: 08/31/19 07:33 Dose: 0.5 mg Documented by: Enoxaparin Sodium (Lovenox) 40 mg SC DAILY [facility] Sodium Chloride () 250 mls @ 15 mls/hr IV .[id number] PRN PRN Reason: Saline Flush Sodium Chloride () 250 mls @ 15 mls/hr IV .[id number] PRN PRN Reason: Additional IVPB Infusion Metoprolol Tartrate (Lopressor (Beta Sabino)) 25 mg PO DAILY [facility] Last Admin: 08/31/19 09:15 Dose: 25 mg Documented by: Morphine Sulfate () 2 mg IV Q1H PRN PRN PRN Reason: Pain Score 6-10/10 Ondansetron HCl (Zofran) 4 mg IV Q8H PRN PRN PRN Reason: NAUSEA/VOMITING Pantoprazole Sodium (Protonix) 40 mg PO DAILY [facility] Last Admin: 08/31/19 09:13 Dose: 40 mg Documented by: Sertraline HCl (Zoloft) 25 mg PO QHS [facility] Last Admin: 08/30/19 20:43 Dose: 25 mg Documented by: Sodium Chloride () 250 ml IV UD PRN PRN Reason: Hypotension Sodium Chloride () 10 - 40 ml IV UD PRN PRN Reason: SALINE FLUSH Last Admin: 08/30/19 15:12 Dose: 10 ml Documented by: Triamterene/HCTZ (Dyazide (G)) 1 cap PO DAILY [facility] Last Admin: 08/31/19 09:13 Dose: 1 cap Documented by: Assessment/Plan RECOMMENDATIONS: 1. Resume Spiriva and as needed albuterol at discharge. 2. Wean supplemental oxygen as tolerated to maintain saturations at or above 90%. 3. Perform walking oximetry study prior to consideration for discharge home. 4. Recommend outpatient CT-guided lung biopsy of the patient's left lower lobe lung nodule. 5. The patient will need to complete pulmonary function studies as well upon follow-up. 6. Further optimization of her baseline inhaler regimen will be undertaken upon her follow-up office visit. 7. The patient is currently scheduled to follow-up with our nurse practitioner in the pulmonary medicine clinic on September 06 at 11:15 AM. IMPRESSIONS: 1. Acute hypoxemic respiratory insufficiency The patient developed postoperative hypoxemia following laparoscopic cholecystectomy. She does have emphysematous changes on CT scan with a self-reported history of COPD. Therefore, the patient may have had a chronic supplemental oxygen need even prior to this hospitalization. Agree with continuing oxygen for now. As part of her work-up a CT chest did reveal evidence of a 1.5 cm left lower lobe lung nodule. I did recommend that the patient follow-up as above next week in the pulmonary medicine clinic, at which time, we can arrange to have a CT-guided lung biopsy completed. I would also recommend that repeat pulmonary function studies be obtained and her baseline inhaler regimen optimized to provide additional symptom relief. The patient is in agreement with follow-up. This note was generated with [employer] dictation software. It may contain incorrect words, spelling, and punctuation that were not noted in checking the note before signing. Code Visit Inpatient E&M: 73821 Init Hosp L3
[2019-08-31] MEDS: Enoxaparin 40 MG/0.4 ML Syringe SC (10:08)
--- NOTE | 2019-08-31 13:47 | CASEMGMT ---
JAYME TORRES updated that patient will need home oxygen at discharge. Script received. JAYME TORRES provided patient with list of in-network DME and patient would like [facility]. JAYME TORRES sent referral to [facility] and arranged for portable tank to be delivered prior to discharge.
--- NOTE | 2019-08-31 16:12 | PN.SURG_ITS ---
Subjective: Patient denies abdominal pain, tolerating diet - Physical Exam Vitals/I&O's: Vital Signs Temp Pulse Resp BP Pulse Ox 98.8 F 77 21 H 125/73 H 90 08/31/19 08:00 08/31/19 10:40 08/31/19 10:40 08/31/19 08:00 08/31/19 10:25 Oxygen Flow Rate (L/min) [ 3 AMBULATION with Oxygen] Oxygen Flow Rate (L/min) 2 Oxygen Delivery Method Nasal Cannula Weight: 59.4 kg Body Mass Index (BMI) 22.4 Intake and Output for Last 24 Hours 08/29/19 08/30/19 08/31/19 23:59 23:59 23:59 Intake Total 1100 / 1370 3125.0 / 3125.0 550 / 550 Output Total 1950 / 1950 2099 / 2099 Balance 1100 / 870 1175.0 / 1175.0 -1550 / -1550 General: Alert, Oriented x3 Oral: Moist Mucosa Neck: Supple Lungs: Normal air movement Abdomen: Bowel Sounds Present - dressing intact, Soft Laboratory Results 08/31/19 05:52: Sodium 143, Potassium 3.7, Chloride 109 H, Carbon Dioxide 28.0, Anion Gap 6, BUN 21 H, Creatinine 1.12 H, Estim Creat Clear Calc 31.71, Est GFR (MDRD) Af Amer 59 L, Est GFR (MDRD) Non-Af 49 L, BUN/Creatinine Ratio 18.8, Glucose 103, Calcium 8.8 Current Medications Hydrocodone Bitart/Acetaminophen ([place] 5mg-325mg) 1 tablet PO Q4H PRN PRN PRN Reason: Pain Score 1-5/10 Albuterol Sulfate (Ventolin Aerosols) 2.5 mg INHALATION Q2H PRN PRN PRN Reason: SOB &/OR WHEEZING Albuterol/Ipratropium (Duoneb) 3 ml INHALATION Q4HWA.RT [facility] Last Admin: 08/31/19 15:01 Dose: Not Given Documented by: Budesonide (Pulmicort Aerosol) 0.5 mg INHALATION BID.RT [facility] Last Admin: 08/31/19 07:33 Dose: 0.5 mg Documented by: Enoxaparin Sodium (Lovenox) 40 mg SC DAILY [facility] Last Admin: 08/31/19 10:08 Dose: 40 mg Documented by: Sodium Chloride () 250 mls @ 15 mls/hr IV .[id number] PRN PRN Reason: Saline Flush Sodium Chloride () 250 mls @ 15 mls/hr IV .[id number] PRN PRN Reason: Additional IVPB Infusion Metoprolol Tartrate (Lopressor (Beta Sabino)) 25 mg PO DAILY [facility] Last Admin: 08/31/19 09:15 Dose: 25 mg Documented by: Morphine Sulfate () 2 mg IV Q1H PRN PRN PRN Reason: Pain Score 6-10/10 Ondansetron HCl (Zofran) 4 mg IV Q8H PRN PRN PRN Reason: NAUSEA/VOMITING Pantoprazole Sodium (Protonix) 40 mg PO DAILY [facility] Last Admin: 08/31/19 09:13 Dose: 40 mg Documented by: Sertraline HCl (Zoloft) 25 mg PO QHS [facility] Last Admin: 08/30/19 20:43 Dose: 25 mg Documented by: Sodium Chloride () 250 ml IV UD PRN PRN Reason: Hypotension Sodium Chloride () 10 - 40 ml IV UD PRN PRN Reason: SALINE FLUSH Last Admin: 08/30/19 15:12 Dose: 10 ml Documented by: Triamterene/HCTZ (Dyazide (G)) 1 cap PO DAILY [facility] Last Admin: 08/31/19 09:13 Dose: 1 cap Documented by: Medical Necessity - Tobacco Use Smoking Status: Former smoker Tobacco Use: Non-smoker Assessment/Plan Impression: s/p laparoscopic cholecystectomy low oxygenation pulmonary nodule Plan: d/c to home
== END 2019-08-31 16:29 | disposition home or self-care (01) ==
LOC: SDC 08-30 06:37 → MS3 08-30 06:37
PROVIDERS: Anesthesiology; Physician Assistant; Admitting Provider Surgery; PCP Student in an Organized Health Care Education/Training Program; Referring Provider Surgery; Visit Provider Internal Medicine
PROC: (CPT 47610; principal; 2019-08-29 12:45)
DX: K80.10 Calculus of gallbladder with chronic cholecystitis without obstruction (principal); J44.9 Chronic obstructive pulmonary disease, unspecified; M81.0 Age-related osteoporosis without current pathological fracture; K21.9 Gastro-esophageal reflux disease without esophagitis; I12.9 Hypertensive chronic kidney disease with stage 1 through stage 4 chronic kidney disease, or unspecified chronic kidney disease; N18.3 Chronic kidney disease, stage 3 (moderate); R09.02 Hypoxemia; F41.9 Anxiety disorder, unspecified; F32.9 Major depressive disorder, single episode, unspecified; R91.1 Solitary pulmonary nodule; N28.9 Disorder of kidney and ureter, unspecified; Z79.899 Other long term (current) drug therapy; Z79.82 Long term (current) use of aspirin; Z87.891 Personal history of nicotine dependence
CPT/HCPCS: 00790; 47563; 36415; 71046; 71260; 74300; 76000; 80048; 80076; 85027; 85610; 85730; 88304; 88305; 94640; 94762; 96360; 96361; 96372; 99218; 99251; J7030; J7120; Q9967; A4216; G0378; G0379; G0463; J2405

== ENCOUNTER → 2019-09-07 11:57 | Outpatient (CLI) | payer MEDICARE, SELFPAY ==
[2019-09-07 07:53] VITALS: BMI 22.4
--- NOTE | 2019-09-07 11:59 | EKG12_ITS ---
Test Reason : PRE-PROCEDURE Blood Pressure : / mmHG Vent. Rate : 070 BPM Atrial Rate : 070 BPM P-R Int : 126 ms QRS Dur : 078 ms QT Int : 412 ms P-R-T Axes : 053 037 067 degrees QTc Int : 444 ms Normal sinus rhythm Nonspecific ST and T wave abnormality Abnormal ECG Confirmed by KUNAL PAULSON, MOHSEN ([id number]), restaurant expeditor BRONSON SANTILLAN ([id number]) on 09/09/2019 8:07:17 AM Referred By: An Grande Confirmed By:WILBUR SYED MD
== END ==
PROVIDERS: PCP Student in an Organized Health Care Education/Training Program; Referring Provider Nurse Practitioner Acute Care; Visit Provider Nurse Practitioner Acute Care
DX: I49.9 Cardiac arrhythmia, unspecified (principal)
CPT/HCPCS: 93005

== ENCOUNTER → 2019-11-21 07:18 | Outpatient (CLI) | payer MEDICARE, SELFPAY ==
[2019-09-14 08:44] VITALS: BMI 22.4
--- NOTE | 2019-11-21 08:00 | PET_ITS ---
EXAMINATION: FDG PET CT INDICATIONS: An 84-year-old female with reported history of pulmonary nodularity. COMPARISON EXAMINATION: Previous FDG PET study report dated 08/30/19. INDEX LESION SIZE SUV INTERPRETATION Left lower lateral lung-left lower lobe 12.4 mm (frame 168) 0.9 Quantitative criteria for viable neoplasm are not fulfilled, sequential radiologic investigation recommended TECHNIQUE: Following the intravenous administration of 15.4 mCi of F-18 deoxyglucose via the left antecubital fossa, multiplanar image acquisitions of the neck, chest, abdomen and pelvis to level of mid thigh, obtained at one hour post radiopharmaceutical administration contemporaneously interpreted with the current CT of the neck, chest, abdomen and pelvis to level of mid thigh, dated 11/21/19 via coregistration and previous FDG PET study report dated 08/30/19 reveal: SERUM GLUCOSE LEVEL: 90 mg/dl. HEIGHT: 64 inches. WEIGHT: 128 lbs. FINDINGS: 1. Subtle increased FDG concentration is observed in the left lower lateral lung-left lower lobe posterior to the major fissure. The calculated maximum standard uptake value is 0.9. The maximal axial diameter of the corresponding parenchymal density on review of CT of the chest dated 11/21/19 is 12.4 mm (AP). 2. Normal physiologic distribution of the radiopharmaceutical is apparent in the hepatic (2.5) and splenic parenchyma, both renal units, bladder and visualized intestinal tract. There is uniform distribution of the radiopharmaceutical concentration defined in the visualized cerebellar hemispheres and cerebral cortical structures. Diffuse intestinal tract activity is noted throughout all four quadrants of the abdominal-pelvic retroperitoneum and mesentery consistent with normal physiologic distribution of the radiopharmaceutical. Prominent radiopharmaceutical concentration is observed in the left ventricular myocardium commensurate with the pattern associated with the FED state. Pertinent CT findings are as follows. CHEST: Emphysematous changes are noted in the bilateral upper lung zones. Linear density defined in the bilateral apical lung ortiz are non-glucose avid. There are no additional parenchymal densities-nodules defined in the right and left hemithorax with discernible increased FDG uptake. Atherosclerotic calcification is defined in the thoracic aorta without evidence of dilatation, aneurysm formation. Coronary arterial calcification is observed. Bilateral axillary soft tissue is ametabolic. ABDOMEN AND PELVIS: Atherosclerotic calcification is defined in the abdominal aorta without evidence of dilatation, aneurysm formation. Pelvic arterial calcification is observed. Bilateral inguinal soft tissue densities with fatty hilus demonstrate no evidence of increased glucose metabolism. SKELETAL: Degenerative changes defined in the cervical, thoracic and lumbar spine demonstrate no evidence of glucose hypermetabolism. Diffuse demineralization is defined. PET/PET/CT Tumor Base -Thigh Init IMPRESSION: 1. NEGATIVE EXAMINATION. There is no definitive quantitative scintigraphic evidence of viable neoplasm. 2. Facilitated FDG uptake subtly apparent in the left lower lateral lung-left lower lobe does not fulfill quantitative criteria for viable neoplasm. (Adamson et al, Annals of Internal Medicine, 138:724, 2003). 3. Metabolic and/or anatomic stability may be ensured in the left hemithorax pulmonary parenchymal abnormality with repeat FDG PET study and/or CT of the thorax in three-six months. (Xiu, Journal of Nuclear Medicine 45:88, P2004. Anail, Seminars in Thoracic and Cardiovascular Surgery 14:292, 2002). Electronic Signature Dorian Steele D.O. Electronically Signed: Dorian Steele DO at 8:42 EDT Tel , Service support ,
[2019-11-21 09:44] LABS: Absolute Lymphocyte Count 1.62 X10^3/uL (0.83-4.51); Absolute Neutrophil Count 3.8 X10^3/uL (2.0-7.7); Basophil# 0.05 X10^3/uL; Basophil% 0.8 % (0-1); Eosinophil# 0.38 X10^3/uL; Hematocrit 36.5 % (37-47); Hemoglobin 11.4 g/dL (12.0-15.0); Lymphocyte # 1.62 X10^3/ul (4.0); Lymphocyte % 25.6 % (19-41); Mean Corp Hgb Conc 31.2 g/dL (32-36); Mean Corpuscular Hgb 29.9 pg (27.0-32.0); Mean Corpuscular Volume 95.8 fL (81-99); Mean Platelet Vol. 11.1 fl (6.2-12.0); Monocyte% 7.9 % (0-10); NRBC Flagged by Analyzer 0 % (0-5); Neutrophil # 3.77 X10^3/uL (2.7-7.7); Neutrophil % 59.4 % (47-70); Platelet Count 153 K/mm3 (150-450); RBC Distribution Width CV 13.2 % (11.6-14.6); RBC Distribution Width SD 46.5 fl (35.1-43.9); Red Blood Count 3.81 M/mm3 (4.2-5.4); White Blood Count 6.3 K/mm3 (4.4-11.0)
[2019-11-21 09:55] LABS: Hemoglobin A1c 5.6 % (4.2-6.3)
[2019-11-21 10:01] LABS: Vitamin D,25 Hydroxy 31.5 ng/mL
[2019-11-21 10:02] LABS: ALB/GLOB Ratio 1.1 RATIO (0.9-2.4); AST(SGOT) 20 U/L (15-37); Alanine Aminotransfer ALT/SGPT 18 U/L (13-56); Albumin, Serum 3.9 g/dL (3.2-5.0); Alkaline Phosphatase 83 U/L (45-117); Anion Gap 4 (5-15); BUN 34 mg/dL (7-18); BUN/Creat Ratio 22.7 RATIO (10-20); Calcium,Total 9.5 mg/dL (8.5-10.1); Chloride 110 mmol/L (98-107); Cholesterol 245 mg/dL (200); EST Glomerular Filtration Rate 35 mL/min (>60); Est Glom Filt Rate - Afr Amer 42 mL/min (>60); Ferritin 56 ng/mL (8-252); Globulin 3.6 g/dL (2.2-4.2); Glucose 89 mg/dL (74-106); High Density Lipoprotein 49 mg/dL; Iron 66 ug/dL (50-170); Iron Binding Capacity,Total 318 ug/dL (250-450); PERCENT IRON SATURATION 20.8 % (15.0-55.0); Potassium 4.1 mmol/L (3.5-5.1); Protein, Total 7.5 g/dL (6.4-8.2); Sodium Level 143 mmol/L (136-145); Thyroid Stim Hormone (TSH) 3.75 uIU/mL (0.358-3.74); Triglycerides 225 mg/dL; Very Low Density Lipoprotein 45 mg/dL (5-40)
== END ==
PROVIDERS: PCP Student in an Organized Health Care Education/Training Program; Referring Provider Nurse Practitioner Acute Care; Visit Provider Nurse Practitioner Acute Care
DX: R91.1 Solitary pulmonary nodule (principal); D50.8 Other iron deficiency anemias; I10 Essential (primary) hypertension; E78.5 Hyperlipidemia, unspecified; R73.01 Impaired fasting glucose; E55.9 Vitamin D deficiency, unspecified
CPT/HCPCS: 36415; 78815; 80053; 80061; 82306; 82728; 83036; 83540; 83550; 84443; 85025; A9552

== ENCOUNTER 2020-02-21 18:03 | Emergency (ER) | payer MEDICARE, SELFPAY ==
[2019-11-30 08:42] VITALS: BMI 22.4
[2020-02-21 18:04] VITALS: BP 152/72; PULSE 63; RESP 16; TEMP 36.2; O2SAT 94; BMI 23.0
[2020-02-21 18:05] VITALS: BP 152/72; PULSE 63; RESP 16; TEMP 36.2; O2SAT 94
--- NOTE | 2020-02-21 18:16 | EKG12_ITS ---
Test Reason : DYSRHYTHMIA Blood Pressure : / mmHG Vent. Rate : 069 BPM Atrial Rate : 069 BPM P-R Int : 126 ms QRS Dur : 076 ms QT Int : 412 ms P-R-T Axes : 041 037 056 degrees QTc Int : 441 ms Normal sinus rhythm Nonspecific ST and T wave abnormality Abnormal ECG Confirmed by JAGRUTI BOLTON ([id number]), pressed or blown glass worker TATIANA MANCERA ([id number]) on 02/27/2020 9:51:13 AM Referred By: ALLYN Confirmed By:JAGRUTI BOLTON
--- NOTE | 2020-02-21 18:18 | ED.DCSUM_ITS ---
- ER Visit Summary Date of Service: 02/21/20 Chief Complaint: Shortness of breath History of Present Illness: The patient is a [address] Salazar. She reports that she has a history of emphysema has chronic shortness of breath. However, this is worse today. She is on 1.5 L of home O2 PRN. States that her shortness of breath is moderate currently and severe at worst. Is worsened by exertion or lying flat. Is relieved by oxygen. Patient reports she has a chronic cough occasional Jimy that is unchanged. It is not productive. She denies any fever, chills, or chest pain. She denies any possible exposure to COVID. No sick contacts. Patient also reports that she has mid back pain that began this morning as well. Says sharp pain instead of 10 severity. It is increased with movement and deep breaths. Is decreased with Advil. Denies any trauma. No fall, MVA, or change in activity. Physical Examination: Vitals: Stable. Afebrile. General: Well-nourished and well-developed. Head: Normocephalic atraumatic. Neck: Supple, no lymphadenopathy. No JVD. Nontender. Cardiovascular: Regular rate and rhythm. 2 out of 6 systolic murmur. Respiratory: No respiratory distress. Clear to auscultation bilaterally. Abdominal: Soft, nontender, nondistended, normal bowel sounds. No guarding, rebound, or peritoneal signs. Back: No vertebral tenderness. She does have mild bilateral CVA tenderness. Extremities: Nontender, no edema. Skin: Normal color, no rash. Neurologic: Alert and oriented ?3. Cranial nerves II through XII are intact. Normal strength and sensation. Psych: Normal affect. Test Results: EKG is sinus at [address] changes. Troponin is negative. BNP is 263.7. Lactic acid is 1.6. UA shows leukocytes and 5-10 white blood cells. However, there are no bacteria. This was sent for culture. Chem-7 shows a chloride of 109, BUN 32, creatinine 1.58, glucose 114. CBC shows an H&H of 11.0 35.8, monocytes of 12. COVID 19 test is pending. Clinical Impression(s) from Imaging Studies Chest X-Ray 02/21/20 19:06 IMPRESSION: COPD/chronic interstitial lung disease Electronically Signed: Sathya Mesa MD at 19:28 EDT , Service support , Chest CTA 02/21/20 19:36 IMPRESSION: 1. No pulmonary embolism or arterial dissection. 2. Diffuse cystic emphysematous changes are reidentified throughout both lungs. 3. Reidentification of a nodule in the anterior lateral aspect of the left lower lobe currently measuring 1.14 x 1.26 cm, is slightly smaller in size in the 1.5 cm measurement obtained on the prior study. The borders of the nodule are partially spiculated, however evaluation on recent PET/CT exam dated NOVEMBER 21, 2019 did not reveal any malignant uptake in this lesion. 4. No visualized pneumonic consolidation. Electronically Signed: Sathya Mesa MD at 20:39 EDT , Service support , Emergency Department Course and Treatment: Patient had an IV placed. She was placed on oxygen and given Tylenol p.o. She is resting more comfortably. Patient feels well and would like to go home. She will be treated as a COPD exacerbation. She was given Zithromax and prednisone here. Treatment Plan: Patient does understand that she still may have COVID-19. She is instructed to quarantine. Follow-up with her primary care physician in 1 to 2 days if not improving. Return to the emergency department for any worsening symptoms. Disposition: To home in improved and stable condition. Impression: 1. COPD exacerbation. 2. Back pain, uncertain cause. This note was generated with [employer] software. It may contain incorrect words, spelling, and punctuation that were not noted in review of the chart prior to signing ED Disposition - Plan for ED Patient: Disposition: Home or Assisted Living Instructions: ED COPD Flare Prescriptions: Prednisone [Deltasone] 40 mg PO DAILY #10 tab Prescription Printed Azithromycin [Zithromax] 250 mg PO DAILY #4 tab Prescription Printed Referrals: Darryl Salazar, DO [Primary Care Provider] - 1-2 Days if not improving
[2020-02-21] MEDS: Acetaminophen 500 MG Tablet 1000 MG PO (18:54)
[2020-02-21 19:06] VITALS: O2SAT 93
--- NOTE | 2020-02-21 19:06 | RAD_ITS ---
STUDY: X-RAY CHEST REASON FOR EXAM: Female, 84 years old. increased sob. hx of copd TECHNIQUE: Single AP portable view of the chest. COMPARISON: August 30, 2019 FINDINGS: There is hyperinflation of the lungs consistent with chronic obstructive lung disease (COPD). Chronic appearing interstitial thickening is seen in the bilateral lower lobes as well as pleural reaction. A trace left lower lobe pleural effusion is seen. No significant interval change from the prior study. Normal size heart. The remaining visualized structures are stable. RAD/Chest 1 View (Portable) IMPRESSION: COPD/chronic interstitial lung disease Electronically Signed: Sathya Mesa MD at 19:28 EDT , Service support ,
[2020-02-21 19:17] LABS: Absolute Lymphocyte Count 1.78 X10^3/uL (0.83-4.51); Absolute Neutrophil Count 4.6 X10^3/uL (2.0-7.7); Basophil# 0.04 X10^3/uL; Basophil% 0.5 % (0-1); Eosinophil# 0.22 X10^3/uL; Eosinophils% 2.9 % (0-5); Hematocrit 35.8 % (37-47); Lymphocyte # 1.78 X10^3/ul (4.0); Lymphocyte % 23.4 % (19-41); Mean Corp Hgb Conc 30.7 g/dL (32-36); Mean Corpuscular Hgb 29.4 pg (27.0-32.0); Mean Corpuscular Volume 95.7 fL (81-99); Mean Platelet Vol. 12.1 fl (6.2-12.0); Monocyte# 0.93 X10^3/uL; Monocyte% 12.2 % (0-10); NRBC Flagged by Analyzer 0 % (0-5); Neutrophil # 4.63 X10^3/uL (2.7-7.7); Neutrophil % 60.7 % (47-70); Platelet Count 143 K/mm3 (150-450); RBC Distribution Width CV 13.2 % (11.6-14.6); RBC Distribution Width SD 46.5 fl (35.1-43.9); Red Blood Count 3.74 M/mm3 (4.2-5.4); White Blood Count 7.6 K/mm3 (4.4-11.0)
[2020-02-21 19:27] LABS: Anion Gap 6 (5-15); BUN 32 mg/dL (7-18); BUN/Creat Ratio 20.3 RATIO (10-20); Chloride 109 mmol/L (98-107); Creatinine, Serum 1.58 mg/dL (0.55-1.02); EST Glomerular Filtration Rate 33 mL/min (>60); Est Glom Filt Rate - Afr Amer 40 mL/min (>60); Estimated Creatinine Clearance 21.53 ml/min; Glucose 114 mg/dL (74-106); Potassium 3.8 mmol/L (3.5-5.1); Sodium Level 144 mmol/L (136-145)
[2020-02-21 19:28] LABS: Lactic Acid 1.6 mmol/L (0.4-1.9)
[2020-02-21 19:35] LABS: BNP,B-Type NATRIURETIC PEPTIDE 263.7 pg/mL (0-100)
[2020-02-21 19:36] LABS: D-Dimer Quantitative (DVT/PE) 1.58 FEU/ug/m (0.27-0.49)
--- NOTE | 2020-02-21 19:36 | CT_ITS ---
STUDY: CTA CHEST REASON FOR EXAM: Female, 84 years old. SOB, COPD RADIATION DOSAGE (If Supplied By Facility): CTDIvol = ( 4.58 ) mGy, DLP = ( 146.44 ) mGycm TECHNIQUE: The examination was performed with the intravenous administration of IV 100mL Isovue-370. Post-processing of the angiographic images was performed, with multiplanar reformation and 3D reconstruction. Individualized dose optimization techniques were used for this CT. COMPARISON: Chest CT dated August 30, 2019 FINDINGS: Normal enhancement of the main pulmonary artery and right and left pulmonary arteries. Normal enhancement of the bilateral peripheral pulmonary arteries. There is no demonstrated pulmonary embolism. There is atherosclerotic calcification of the aortic arch with tortuosity. There is no demonstrated aortic dissection. Normal heart size and pericardium. Normal mediastinum. Normal hilar regions. Normal visualized trachea and bronchi. The lungs are hyper expanded, with flattening of the hemidiaphragms. Diffuse cystic emphysematous changes are reidentified throughout both lungs. Chronic bibasilar interstitial scarring is present. No visualized pleural effusion. Reidentification of a nodule in the anterior lateral aspect of the left lower lobe currently measuring 1.14 x 1.26 cm, is slightly smaller in size in the 1.5 cm measurement obtained on the prior study. The borders of the nodule are partially spiculated, however evaluation on recent PET/CT exam dated NOVEMBER 21, 2019 did not reveal any malignant uptake in this lesion. No visualized pneumonic consolidation. Biapical pleural thickening and fibrosis reidentified. Normal chest wall structures. There are degenerative changes of thoracic spine. Small simple cyst in the dome and anterior aspect of the right lobe of the liver reidentified. CT/CTA Chest W/WO Contrast IMPRESSION: 1. No pulmonary embolism or arterial dissection. 2. Diffuse cystic emphysematous changes are reidentified throughout both lungs. 3. Reidentification of a nodule in the anterior lateral aspect of the left lower lobe currently measuring 1.14 x 1.26 cm, is slightly smaller in size in the 1.5 cm measurement obtained on the prior study. The borders of the nodule are partially spiculated, however evaluation on recent PET/CT exam dated NOVEMBER 21, 2019 did not reveal any malignant uptake in this lesion. 4. No visualized pneumonic consolidation. Electronically Signed: Sathya Mesa MD at 20:39 EDT , Service support ,
[2020-02-21 20:34] LABS: Bacteria 0 SEEN /hpf (None Seen); Mucous, Urine 0 SEEN /hpf (<or=2+); Red Blood Cells-Urine 0 SEEN /hpf (0-5); Squamous Epithelial Cells - UA 0 SEEN /hpf (5-10)
[2020-02-21 20:38] LABS: Color, Urine Yellow (Yellow); Glucose, Dipstick Normal (Normal); Ketone-Dipstick Negative (Negative); Leukocyte Esterase-Dipstick 100 /ul (Negative); Nitrite-Dipstick Negative (Negative); Occult Blood-Urine Negative /ul (Negative); Protein-Dipstick Negative (Negative); Urine Bilirubin Dipstick Negative (Negative); Urine Clarity Clear (Clear); Urine Urobilinogen Normal (Normal)
[2020-02-21 20:46] VITALS: BP 162/79; PULSE 63; RESP 16; O2SAT 95
[2020-02-21 20:56] LABS: White Blood Cells 5-10 SEEN /hpf (0-5)
[2020-02-21 21:12] VITALS: BP 156/90; PULSE 63; RESP 18; TEMP 36.2; O2SAT 93
[2020-02-21] MEDS: Azithromycin 250 MG Tablet 500 MG PO (21:20)
[2020-02-21] MEDS: predniSONE 20 MG Tablet 40 MG PO (21:21)
== END 2020-02-21 21:34 | disposition home or self-care (01) ==
LOC: ED 18:26
PROVIDERS: Emergency Provider Emergency Medicine; PCP Student in an Organized Health Care Education/Training Program
DX: J44.1 Chronic obstructive pulmonary disease with (acute) exacerbation (principal); M54.6 Pain in thoracic spine; Z99.81 Dependence on supplemental oxygen; Z87.891 Personal history of nicotine dependence; Z79.82 Long term (current) use of aspirin; Z79.899 Other long term (current) drug therapy
CPT/HCPCS: 71045; 71275; 80048; 81001; 83605; 83880; 84484; 85025; 85379; 87040; 87086; 87088; 87635; 93005; 94799; 99285; Q9967; A4216; U0003

== ENCOUNTER → 2020-12-12 09:27 | Outpatient (CLI) | payer MEDICARE, SELFPAY ==
[2020-12-12 06:15] VITALS: BMI 23.0
[2020-12-12 09:57] LABS: Bacteria 0 SEEN /hpf (None Seen); Mucous, Urine 0 SEEN /hpf (<or=2+); Red Blood Cells-Urine 0 SEEN /hpf (0-5); Squamous Epithelial Cells - UA 0 SEEN /hpf (5-10); White Blood Cells 0 SEEN /hpf (0-5)
[2020-12-12 10:01] LABS: Color, Urine Yellow (Yellow); Glucose, Dipstick Normal (Normal); Ketone-Dipstick Negative (Negative); Leukocyte Esterase-Dipstick Negative /ul (Negative); Nitrite-Dipstick Negative (Negative); Occult Blood-Urine Negative /ul (Negative); Protein-Dipstick Negative (Negative); Specific Gravity, Urine 1.005 (1.002-1.030); Urine Bilirubin Dipstick Negative (Negative); Urine Clarity Clear (Clear); Urine Urobilinogen Normal (Normal)
[2020-12-12 10:05] LABS: Absolute Lymphocyte Count 1.22 X10^3/uL (0.83-4.51); Absolute Neutrophil Count 3.5 X10^3/uL (2.0-7.7); Basophil# 0.04 X10^3/uL; Basophil% 0.7 % (0-1); Eosinophils% 3.6 % (0-5); Hematocrit 34.7 % (37-47); Hemoglobin 10.8 g/dL (12.0-15.0); Lymphocyte # 1.22 X10^3/ul (0.83-4.51); Mean Corp Hgb Conc 31.1 g/dL (32-36); Mean Corpuscular Hgb 29.3 pg (27.0-32.0); Mean Corpuscular Volume 94.3 fL (81-99); Mean Platelet Vol. 11.6 fl (6.2-12.0); Monocyte# 0.58 X10^3/uL; Monocyte% 10.5 % (0-10); NRBC Flagged by Analyzer 0 % (0-5); Neutrophil # 3.49 X10^3/uL (2.7-7.7); Neutrophil % 62.8 % (47-70); Platelet Count 131 K/mm3 (150-450); RBC Distribution Width CV 12.9 % (11.6-14.6); RBC Distribution Width SD 44.4 fl (35.1-43.9); Red Blood Count 3.68 M/mm3 (4.2-5.4); White Blood Count 5.6 K/mm3 (4.4-11.0)
[2020-12-12 10:23] LABS: ALB/GLOB Ratio 1.1 RATIO (0.9-2.4); AST(SGOT) 22 U/L (15-37); Alanine Aminotransfer ALT/SGPT 16 U/L (13-56); Albumin, Serum 3.8 g/dL (3.2-5.0); Alkaline Phosphatase 91 U/L (45-117); Anion Gap 8 (5-15); BUN 33 mg/dL (7-18); BUN/Creat Ratio 21.3 RATIO (10-20); CRP 3.65 mg/L (0.0-3.0); Calcium,Total 8.7 mg/dL (8.5-10.1); Chloride 106 mmol/L (98-107); Cholesterol 222 mg/dL (200); Creatinine, Serum 1.55 mg/dL (0.55-1.02); EST Glomerular Filtration Rate 34 mL/min (>60); Est Glom Filt Rate - Afr Amer 41 mL/min (>60); Globulin 3.6 g/dL (2.2-4.2); Glucose 87 mg/dL (74-106); High Density Lipoprotein 50 mg/dL; Potassium 4.2 mmol/L (3.5-5.1); Protein, Total 7.4 g/dL (6.4-8.2); Sodium Level 142 mmol/L (136-145); Triglycerides 102 mg/dL; Very Low Density Lipoprotein 20 mg/dL (5-40)
[2020-12-12 10:27] LABS: Vitamin D,25 Hydroxy 33.3 ng/mL
== END ==
PROVIDERS: PCP Student in an Organized Health Care Education/Training Program; Referring Provider Student in an Organized Health Care Education/Training Program; Visit Provider Student in an Organized Health Care Education/Training Program
DX: I10 Essential (primary) hypertension (principal); D50.8 Other iron deficiency anemias; E55.9 Vitamin D deficiency, unspecified; M25.50 Pain in unspecified joint
CPT/HCPCS: 36415; 80053; 80061; 81001; 82306; 85025; 86140

== ENCOUNTER 2022-03-19 18:39 | Emergency (ER) | payer MEDICARE, SELFPAY ==
[2022-03-19 18:41] VITALS: BP 177/98; PULSE 89; RESP 17; TEMP 36.7; O2SAT 92
--- NOTE | 2022-03-19 19:46 | CT_ITS ---
EXAM: CT SPINE - CERVICAL WITHOUT IV REASON FOR EXAM: Female, 86 years old. NECK PAIN Injury/Pain HISTORY: NECK PAIN Injury/Pain Individualized dose optimization techniques were used for this CT. TECHNIQUE: Multiplanar images were obtained of the cervical spine. IV contrast was not utilized. COMPARISON: None. FINDINGS: The vertebral bodies do maintain their height. The odontoid process is intact. Emphysema changes in the lung ortiz. No pre-vertebral soft tissue swelling is seen. The intravertebral disc height is lost. There are scattered lymph nodes in the neck. There are degenerative changes of the osseous structures. There is bilateral facet arthropathy. There are scattered levels of foraminal stenosis. There are vascular calcifications. CT/Spine Cervical without Contras IMPRESSION: Degenerative changes of the cervical spine. There are no acute findings. Electronically Signed: Loco Gomes MD at 20:27 EDT Reading Location ID and State: [facility] / [place] , Service support ,
[2022-03-19] MEDS: HYDROcodone Bitartrate/Apap 5/325 Tablet PO (19:53)
--- NOTE | 2022-03-19 20:10 | RAD_ITS ---
EXAM: XR RIGHT HUMERUS, 2 OR MORE VIEWS CLINICAL INDICATION: Injury/Pain TECHNIQUE: Frontal and lateral views of the right humerus. This report was created using [employer] report generation technology. COMPARISON: None. FINDINGS: BONES/JOINTS: Severe degenerative changes of the right glenohumeral articulation. There is periarticular soft tissue calcification consistent with a calcific tendinitis of the shoulder joint. No acute fracture. No subluxation. Normal alignment. No sclerotic or destructive changes observed. SOFT TISSUES: Unremarkable. No soft tissue swelling or gas. No radiopaque foreign body. RAD/Humerus min 2 Views IMPRESSION: 1. Severe degenerative changes of the right glenohumeral articulation. 2. There is periarticular soft tissue calcification consistent with a calcific tendinitis of the shoulder joint. Electronically Signed: Loco Gomes MD at 20:29 EDT Reading Location ID and State: [facility] / [place] , Service support ,
--- NOTE | 2022-03-19 20:10 | RAD_ITS ---
STUDY: XR Shoulder Min 2 Views REASON FOR EXAM: Female, 86 years old. Injury/Pain TECHNIQUE: XR Shoulder Min 2 Views RIGHT COMPARISON: None. FINDINGS: There is severe degenerative arthrosis of the glenohumeral articulation. Normal acromioclavicular joint. Normal acromion. Normal humeral head and visualized proximal humerus. There is periarticular soft tissue calcification consistent with a calcific tendinitis. Normal visualized pulmonary apex. 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 Electronically Signed: Loco Gomes MD at 20:28 EDT ,
[2022-03-19 22:23] VITALS: BP 165/78; PULSE 74; RESP 17; O2SAT 98
--- NOTE | 2022-03-19 22:43 | EX.ED.UPPERE ---
HPI History of Present Illness HPI Narrative: Patient with pain in her right shoulder and upper arm that has been getting worse over the past several days. Patient describes pain as sharp. Patient states pain radiates up into her neck. Patient states the pain radiates down into her chest. Patient describes the pain as sharp. Patient states it is worse whenever she stands up and better when she sits down. Patient denies any paresthesias or weakness. Patient denies any trauma or injury. Patient states she is having difficulty lifting her right arm due to the pain. Chief Complaint: Upper Extremity Injury Onset/Context/Timing Onset: Days Context: Gradual Onset Timing: Continuous Quality of Pain: Sharp Location: Right neck, left shoulder, upper arm Worsened by: Standing Relieved by: Sitting Associated Symptoms Associated Symptoms: Negative for Parasthesia, Weakness or Loss of Funtion PFSH [facility] Medical History COPD (chronic obstructive pulmonary disease) Depression HTN (hypertension) Rheumatoid arthritis Home Medications albuterol sulfate 90 mcg/actuation aerosol inhaler 1 puff IH PRN PRN Sob &/Or Wheezing 08/23/19 [History Last Taken Unknown] aspirin 81 mg tablet,delayed release 81 mg PO DAILY 08/23/19 [History Last Taken Unknown] diclofenac 3 %-hyaluronate 2 %-niacinamide 4 % topical gel 30 g TP DAILY knee and feet 08/23/19 [History Last Taken Unknown] meloxicam 7.5 mg tablet 7.5 mg PO DAILY 08/23/19 [History Last Taken 08/29/19 06:00] metoprolol tartrate 25 mg tablet 25 mg PO DAILY 08/23/19 [History Last Taken 08/29/19 06:00] sertraline 25 mg tablet 25 mg PO QHS 08/23/19 [History Last Taken Unknown] triamterene 37.5 mg-hydrochlorothiazide 25 mg tablet 1 ea PO DAILY 08/23/19 [History Last Taken Unknown] umeclidinium 62.5 mcg-vilanterol 25 mcg/actuation powdr for inhalation (Anoro Ellipta) 1 inh inhalation Q24H #60 ea 12/12/20 [Rx Last Taken Unknown] hydrocodone-acetaminophen 5-325mg 5mg-325mg 1 tab PO Q6H PRN PRN Pain 3 days #10 TABLETS 03/19/22 [Rx Last Taken Unknown] Allergy/AdvReac Type Severity Reaction Status Date / Time No Known Allergies Allergy Verified 03/19/22 18:40 Family History Mother Myocardial infarction Father Myocardial infarction Surgical History History of cholecystectomy Social History Smoking Status: Never smoker ROS ROS ED Constitutional Constitutional ED: Denies chills or fever(s) Eyes Eyes: Denies blurry vision or change in vision ENT ENT ED: Denies rhinorrhea or sore throat Cardiovascular Cardiovascular: Denies chest pain or palpitations Respiratory/Chest Respiratory/Chest: Denies cough or dyspnea Gastrointestinal Gastrointestinal: Reports nausea and vomiting Genitourinary Genitourinary ED: Denies dysuria or hematuria Musculoskeletal Musculoskeletal: Reports neck pain; Denies back pain Integumentary Denies abscess or rash Neurologic Neurologic: Denies headache(s) or weakness Allergic/Immunologic Allergic/Immunologic ED: Denies mouth swelling or urticaria EXAM Physical Exam Const Vital Signs: 03/19/22 18:41 03/19/22 22:23 Temperature 98.0 F Temperature Source Temporal Pulse Rate 89 74 Respiratory Rate 17 17 Blood Pressure 177/98 H 165/78 H Blood Pressure Mean 124 Pulse Ox 92 98 Oxygen Delivery Method Room Air Positive well nourished and well developed General Appearance ED: well developed and NAD Neck Neck Narrative: There is mild tenderness of the right cervical paraspinal muscles. There is no bony crepitance or step-off. Range of motion was slightly limited in all motion secondary to pain. Extremity Extremity Narrative: There is tenderness over the right shoulder and upper arm. There is no edema or ecchymosis. There is no deformity noted. Range of motion was limited in all motions of the right shoulder secondary to pain. Strength is 5/5 bilaterally in the upper extremities. There are no sensory deficits noted. Radial pulses are equal bilaterally. Neuro oriented x3, CN's II-XII intact bilaterally, moves all extremities, no focal motor deficits and no sensory deficits noted Sensorium / Orientation: alert Motor Exam: strength 5/5 throughout Psych mental status grossly normal MDM MDM MDM Narrative Medical decision making narrative: CT scan of the cervical spine was obtained. There are degenerative changes noted. There is no acute fracture or spondylolisthesis. This was interpreted by the radiologist and reviewed by myself. X-rays of the right humerus were obtained. There are 2 views. On my interpretation, there is no acute fracture. There are degenerative changes in the right glenohumeral joint. Radiologist also interpreted the x-rays and agrees. X-rays of the right shoulder were obtained. There are 4 views. On my interpretation, there is no acute fracture or dislocation. There is degenerative arthritis noted. Radiologist also interpreted the x-rays and agrees. Patient was advised of her findings. Patient was given a dose of [place] here. Patient was given a prescription for [place]. Patient was instructed to continue her meloxicam as prescribed. Patient was also instructed to continue her topical Voltaren. Patient was instructed to follow-up with her primary care physician in 3 to 5 days. Patient and family understood and were agreeable with the plan. All questions were answered. Radiography Diagnostic Testing: Clinical Impression(s) from Imaging Studies Cervical Spine CT 03/19/22 19:46 IMPRESSION: Degenerative changes of the cervical spine. There are no acute findings. Electronically Signed: Loco Gomes MD at 20:27 EDT , Humerus X-Ray 03/19/22 20:10 IMPRESSION: 1. Severe degenerative changes of the right glenohumeral articulation. 2. There is periarticular soft tissue calcification consistent with a calcific tendinitis of the shoulder joint. Electronically Signed: Loco Gomes MD at 20:29 EDT , Shoulder X-Ray 03/19/22 20:10 IMPRESSION: There is severe degenerative arthrosis of the glenohumeral articulation. 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 Instructions: ED Pain, Acute, Uncertain Cause Prescriptions: New hydrocodone-acetaminophen [hydrocodone-acetaminophen] 5-325 mg tablet 1 tab PO Q6H PRN PRN (Reason: Pain) 3 Days Qty: 10 0RF No Action Anoro Ellipta 62.5-25 mcg/actuation blister with device 1 inh inhalation Q24H Qty: 60 0RF aspirin 81 MG tablet,delayed release (DR/EC) 81 mg PO DAILY meloxicam 7.5 MG tablet 7.5 mg PO DAILY sertraline 25 MG tablet 25 mg PO QHS triamterene-hydrochlorothiazid 1 EACH tablet 1 ea PO DAILY albuterol sulfate 8.5 GM HFA aerosol inhaler 1 puff IH PRN PRN (Reason: Sob &/Or Wheezing) metoprolol tartrate 25 MG tablet 25 mg PO DAILY [id number] 30 GM gel 30 g TP DAILY Primary Care Provider: Darryl Salazar Referrals: Darryl Salazar DO [Primary Care Provider] - 3-5 Days Disposition Disposition: Home, Self Care Discharge Date/Time: 03/19/22 22:23
== END 2022-03-19 22:23 | disposition home or self-care (01) ==
PROVIDERS: Emergency Provider Emergency Medicine; PCP Student in an Organized Health Care Education/Training Program; Visit Provider Emergency Medicine
DX: M19.011 Primary osteoarthritis, right shoulder (principal); M06.9 Rheumatoid arthritis, unspecified; J44.9 Chronic obstructive pulmonary disease, unspecified; M47.812 Spondylosis without myelopathy or radiculopathy, cervical region; I10 Essential (primary) hypertension; F32.A Depression, unspecified; Z79.1 Long term (current) use of non-steroidal anti-inflammatories (NSAID); Z79.82 Long term (current) use of aspirin; Z79.899 Other long term (current) drug therapy; R11.2 Nausea with vomiting, unspecified
CPT/HCPCS: 72125; 73030; 73060; 99282